=== PATIENT | male | born 1980 | race Hispanic/Latino ===

== ENCOUNTER 2021-10-09 22:57 | Emergency (ER) | payer SELFPAY ==
[~2021-10-09] VITALS: Ht 172.7 cm; Wt 74.8 kg
[2021-10-09] MEDS ORDERED: HYDROCODONE/APAP 5MG-325MG TAB PO ONE (23:30)
[2021-10-09] MEDS ORDERED: HYDROCODONE/APAP 5MG-325MG TAB ONE (23:39)
[2021-10-10] MEDS ORDERED: NAPROSYN500 MG PO (00:02)
[2021-10-10 00:08] VITALS: BP 136/88
== END 2021-10-10 00:08 | disposition home or self-care (01) ==
LOC: EDBD 22:57 → FSED 23:13
DX: R51.9 Headache, unspecified (principal); F15.10 Other stimulant abuse, uncomplicated; F17.210 Nicotine dependence, cigarettes, uncomplicated
CPT/HCPCS: 70450; 99283